=== PATIENT | male | born 1980 | race Caucasian/White ===

== ENCOUNTER 2016-07-11 01:39 | Emergency (ER) | payer OTHER ==
[2016-07-11] MEDS ORDERED: Ketorolac 60 MG/2 ML SDV IM ONE (01:50)
[2016-07-11] MEDS ORDERED: Ondansetron 4 MG/2 ML SDV IVPUSH PRN (02:15)
[2016-07-11] MEDS ORDERED: fentaNYL 100 MCG/2 ML SDV IVPUSH PRN (02:15)
[2016-07-11] MEDS: Lactated Ringers 1,000 ML IV SCH ×2 (02:20→04:40)
--- NOTE | 2016-07-11 02:22 | EDM.PDOC ---
ED HPI RENAL/ - General Chief Complaint: Back Pain or Injury Stated Complaint: "HAVING BACK PAIN Time Seen by Provider: 07/11/16 02:05 Source of Information: Reports: Patient History Limitations: Reports: No limitations - History of Present Illness INITIAL COMMENTS - FREE TEXT/NARRATIVE: Patient presents with left flank pain that radiates around in to his left groin. States pain began around 11 pm, has been unable to find a position of comfort. Started in the left flank and now more in the left groin/testicle area. No nausea or vomiting. Has been voiding without difficulty. Has not noted any blood. Has been having normal bowel movements, no bloody stools. No history of abdominal problems or kidney stones. 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 Drinks one caffeinated beverage per day, some water. Has had 2 brothers who have had kidney stones. Symptom Onset Date: 07/10/16 Timing/Duration: Reports: Hour(s): Location: Reports: urethral, flank Quality: Reports: cramping Severity: severe Associated Symptoms: Reports: groin pain, testicular pain, abdominal pain. Denies: incontinence, burning, frequency, unable to urinate, penile discharge, fever/chills, nausea/vomiting, constipation, diarrhea, bloody stools - Related Data Allergies/ADRs: Allergies Allergy/AdvReac Type Severity Reaction Status Date / Time No Known Allergies Allergy Verified 07/11/16 02:37 Home Meds: Home Meds . [No Known Home Meds] 07/11/16 [History] ED ROS GENERAL - Review of Systems Review Of Systems: See Below Constitutional: Denies: fever, chills, malaise, weakness, decreased appetite HEENT: Reports: No symptoms Respiratory: Reports: No Symptoms Cardiovascular: Reports: No symptoms GI/Abdominal: Reports: Abdominal pain. Denies: Black stool, Bloody stool, Constipation, Diarrhea, Nausea, Vomiting : Reports: flank pain. Denies: frequency, hematuria, urgency Musculoskeletal: Reports: back pain Skin: Reports: no symptoms Neurological: Reports: No Symptoms Psychiatric: Reports: No symptoms ED EXAM, RENAL/ - Physical Exam Exam: See Below Exam Limited By: No limitations General Appearance: alert, WD/WN, mild distress Ears: normal external exam, normal TMs Nose: normal inspection, normal mucosa, no blood Throat/Mouth: Normal inspection, Normal oropharynx Head: normocephalic Neck: normal inspection, supple, non-tender Respiratory/Chest: no respiratory distress, lungs clear, normal breath sounds Cardiovascular: regular rate, rhythm GI/Abdominal: normal bowel sounds, soft, tender (left suprapubic/groin area tenderness) (Male) Exam: No hernia Back Exam: normal inspection, full range of motion Neurological: alert, oriented Psychiatric: normal affect, normal mood Skin Exam: Warm, Dry Course - Vital Signs Last Recorded V/S: Last Vital Signs Temp 97.7 F 07/11/16 02:00 Pulse 63 07/11/16 02:00 Resp 20 07/11/16 02:00 BP 165/97 H 07/11/16 02:00 Pulse Ox 99 07/11/16 02:00 - Orders/Labs/Meds Orders: Active Orders 24 hr Category Date Time Status Abdomen Pelvis wo Cont [CT] Stat Exams 07/11/16 02:15 Taken Labs: Laboratory Tests 07/11/16 Range/Units 01:58 Urine Color Yellow (YELLOW) Urine Appearance Clear (CLEAR) Urine pH 5.5 (4.5-8.0) Ur Specific [place] 1.015 (1.003-1.020) Urine Protein Negative (NEGATIVE) mg/dL Urine Glucose (UA) Negative (NEGATIVE) mg/dL Urine Ketones Negative (NEGATIVE) mg/dL Urine Occult Blood Small H (NEGATIVE) Urine Nitrite Negative (NEGATIVE) Urine Bilirubin Negative (NEGATIVE) Urine Urobilinogen 0.2 (0.2-1.0) EU/dL Ur Leukocyte Esterase Small H (NEGATIVE) Urine RBC 5-10 H (0-5) /HPF Urine WBC Not seen (0-5) /HPF Urine Sperm Occasional H (NOT SEEN) /HPF Meds: Medications Discontinued Medications Generic Name Dose Route Start Last Admin Trade Name Freq PRN Reason Stop Dose Admin Hydrocodone Bitart/Acetaminophen 2 tab 07/11/16 08:19 07/11/16 08:52 [place] 325-5 Mg PO 07/11/16 08:20 2 tab ONETIME ONE Administration Fentanyl 50 mcg 07/11/16 02:15 Sublimaze IVPUSH Q2H PRN Pain Lactated Ringer's 1,000 mls @ 500 mls/hr 07/11/16 02:15 07/11/16 04:40 Ringers, Lactated IV 500 mls/hr ASDIRECTED SAMUEL Administration Ketorolac Tromethamine 60 mg 07/11/16 01:50 07/11/16 01:54 Toradol IM 07/11/16 01:51 60 mg ONETIME ONE Administration Ondansetron HCl 4 mg 07/11/16 02:15 Zofran IVPUSH Q6H PRN Nausea Tamsulosin HCl 0.4 mg 07/11/16 08:19 07/11/16 08:52 Flomax PO 07/11/16 08:20 0.4 mg ONETIME ONE Administration - Re-Assessments/Exams Free Text/Narrative Re-Assessment/Exam: 07/11/16 0810- Patient had a restful last few hours but states the pain is coming back. Will start oral pain meds, Flomax and discharge. Is aware that narcotics can be altering so advised to not travel in his semi. 07/11/16 0900 Patient did well with breakfast. No nausea. Pain a 3/10. Departure - Departure Time of Disposition: 10:21 Disposition: Home, Self-Care 01 Condition: good Clinical Impression: Nephrolithiasis Referrals: Provider,Unknown [Primary Care Provider] - Forms: ED Department Discharge Additional Instructions: 1. Push fluids 2. Strain urine 3. Flomax 0.4 mg daily for 7 days 4. Hydrocodone 1-2 tabs as needed for pain~ do not drive while taking these meds 5. Ibuprofen or tylenol for lesser pain 6. Follow up in 6-7 days with primary care provider if have not passed stone. - My Orders Last 24 Hours: My Active Orders 07/11/16 02:15 Abdomen Pelvis wo Cont [CT] Stat - Assessment/Plan Last 24 Hours: My Active Orders 07/11/16 02:15 Abdomen Pelvis wo Cont [CT] Stat
[2016-07-11 02:37] VITALS: BP 165/97
[2016-07-11] MEDS ORDERED: Tamsulosin 0.4 MG Cap.ER PO ONE (08:19)
[2016-07-11] MEDS ORDERED: Acetaminophen/HYDROcodone 325-5 MG Tab PO ONE (08:19)
== END 2016-07-11 10:45 | disposition home or self-care (01) ==
LOC: CC.ED 01:39 → EDBD 01:39 → CC.ED 10:45
DX: N20.2 Calculus of kidney with calculus of ureter (principal)
CPT/HCPCS: 74176; 81001; 96360; 96361; 96372; 99284; A9270; J1885; J7120